=== PATIENT | male | born 1985 | race Caucasian/White ===

== ENCOUNTER 2018-02-08 22:58 | Emergency (ER) | payer OTHER ==
[~2018-02-08 22:58] MED LIST: EPIN0.3P15 IM; FAM20 PO; PRED20TA6 PO
--- NOTE | 2018-02-08 23:16 | ER Report ---
History and Physical Time Seen By MD: 23:13 Hx. of Stated Complaint: allergic reaction that started about an hour from new medication started yesterday, singular; patient is experiencing jittery feeling; sob; declines throat swelling; chest tightness HPI/ROS CHIEF COMPLAINT: Tremor, restlessness HISTORY OF PRESENT ILLNESS: 32-year-old male with a history of allergies read by an type caster who recently started him on Singulair. He took his 1st dose last night and began to have some adverse symptoms of restlessness and poor sleep. Tonight he took a 2nd dose. He has involuntary myoclonic twitching of his legs and arms. Patient looked up the side effect, and it is noted on the list of side effects for this medication. He's never had anything like this before. He denies substance or alcohol use. REVIEW OF SYSTEMS: Respiratory: No cough, no dyspnea. Cardiovascular: No chest pain, no palpitations. Gastrointestinal: No vomiting, no abdominal pain. Musculoskeletal: As above Allergies: Coded Allergies: Sulfa (Sulfonamide Antibiotics) (Verified Allergy, Severe, 09/01/16) shellfish derived (Verified Allergy, Severe, 08/31/16) Penicillins (Verified Allergy, Mild, 02/21/08) Uncoded Allergies: VALERIAN (Allergy, Unknown, 08/31/16) Home Meds Active Scripts Epinephrine (EPIPEN 2-RAINER) 0.3 Mg/0.3 Ml Pen.injctr, 0.3 MG IM DIRECTED PRN for ALLERGY SYMPTOMS, #1 PACK 0 Refills Prov:BEVERLY BALDWIN MD 09/01/16 Reported Medications Levocetirizine (XYZAL) 5 Mg Tab, 5 MG PO, TAB 02/09/18 Montelukast Sodium (SINGULAIR) 10 Mg Tablet, 1 TAB PO QDAY, TAB 02/09/18 Discontinued Reported Medications [None] No Conflict Check, 0 Refills 06/07/10 Discontinued Scripts Prednisone (PREDNISONE) 20 Mg Tablet, 40 MG PO QDAY, #4 TAB 0 Refills Prov:BEVERLY BALDWIN MD 09/01/16 Past Medical/Surgical History Allergic rhinitis Reviewed Nurses Notes: Yes Old Medical Records Reviewed: Yes Hx Substance Use Disorder: Yes (MARIJUANA OCC IN PAST) Hx Alcohol Use: Yes (RARE) Constitutional Vital Sign - Last 24 Hours 02/08/18 02/08/18 02/08/1802/08/18 23:04 23:06 23:28 23:35 Temp 98.7 Pulse 70 76 Resp 19 B/P (MAP) 137/86 (103) 137/86 121/78 (92) Pulse Ox 95 99 O2 Delivery Room Air 02/08/18 02/09/18 23:58 00:00 Pulse 90 B/P (MAP) 118/74 (89) Pulse Ox 93 Physical Exam Vital signs stable, afebrile, pulse ox normal General Appearance: The patient is alert, has no immediate need for airway protection and no current signs of toxicity. Involuntary myoclonic twitching of the legs and arms HEENT: Pupils equal and round no injection. TMs normal, oropharynx without redness or exudate Respiratory: Chest is non tender, lungs are clear to auscultation. Cardiac: regular rate and rhythm Gastrointestinal: Abdomen is soft and non tender, no masses, bowel sounds normal. Musculoskeletal: Neck: Neck is supple and non tender. Extremities have full range of motion and are non tender. Tremor, shaking Skin: No rashes or lesions. DIFFERENTIAL DIAGNOSIS: After history and physical exam differential diagnosis was considered for adverse medication reaction, tremor, agitation, restlessness, substance withdrawal, substance abuse. Medical Decision Making Data Points Result Diagram: 02/08/183 02/08/18 2333 Laboratory Hematology Test 02/08/18 23:33 02/09/18 00:03 Red Blood Count 5.74 M/uL (4.00-5.60) Mean Corpuscular Volume 86.9 fL (80.0-96.0) Mean Corpuscular Hemoglobin 30.0 pg (26.0-33.0) Mean Corpuscular Hemoglobin Concent 34.5 g/dL (32.0-36.0) Red Cell Distribution Width 13.2 % (11.5-14.5) Mean Platelet Volume 8.1 fL (7.2-11.1) Neutrophils (%) (Auto) 49.3 % (39.4-72.5) Lymphocytes (%) (Auto) 39.6 % (17.6-49.6) Monocytes (%) (Auto) 8.7 % (4.1-12.4) Eosinophils (%) (Auto) 1.8 % (0.4-6.7) Basophils (%) (Auto) 0.6 % (0.3-1.4) Nucleated RBC Relative Count (auto) 0.2 /100WBC Neutrophils # (Auto) 4.0 K/uL (2.0-7.4) Lymphocytes # (Auto) 3.2 K/uL (1.3-3.6) Monocytes # (Auto) 0.7 K/uL (0.3-1.0) Eosinophils # (Auto) 0.1 K/uL (0.0-0.5) Basophils # (Auto) 0.0 K/uL (0.0-0.1) Nucleated RBC Absolute Count (auto) 0.01 K/uL Sodium Level 139 mmol/L (137-145) Potassium Level 3.7 mmol/L (3.5-5.0) Chloride Level 101 mmol/L (98-107) Carbon Dioxide Level 27 mmol/L (22-30) Blood Urea Nitrogen 14 mg/dl (9-21) Creatinine 0.90 mg/dl (0.66-1.25) Glomerular Filtration Rate Calc > 60.0 Random Glucose 108 mg/dl (75-110) Calcium Level 9.5 mg/dl (8.4-10.2) Total Bilirubin 0.5 mg/dl (0.2-1.3) Aspartate Amino Transf (AST/SGOT) 28 U/L (0-35) Alanine Aminotransferase (ALT/SGPT) 36 U/L (0-56) Alkaline Phosphatase 79 U/L (0-126) Troponin I < 0.012 ng/ml Total Protein 7.2 g/dl (6.3-8.2) Albumin 4.4 g/dl (3.5-5.0) D-Dimer Quantitative (PE/DVT) < 0.27 ug/ml (0-0.50) Chemistry Test 02/08/18 23:33 02/09/18 00:03 White Blood Count 8.1 k/uL (4.5-11.0) Red Blood Count 5.74 M/uL (4.00-5.60) Hemoglobin 17.2 g/dL (14.0-18.0) Hematocrit 49.9 % (42.0-52.0) Mean Corpuscular Volume 86.9 fL (80.0-96.0) Mean Corpuscular Hemoglobin 30.0 pg (26.0-33.0) Mean Corpuscular Hemoglobin Concent 34.5 g/dL (32.0-36.0) Red Cell Distribution Width 13.2 % (11.5-14.5) Platelet Count 263 K/uL (150-450) Mean Platelet Volume 8.1 fL (7.2-11.1) Neutrophils (%) (Auto) 49.3 % (39.4-72.5) Lymphocytes (%) (Auto) 39.6 % (17.6-49.6) Monocytes (%) (Auto) 8.7 % (4.1-12.4) Eosinophils (%) (Auto) 1.8 % (0.4-6.7) Basophils (%) (Auto) 0.6 % (0.3-1.4) Nucleated RBC Relative Count (auto) 0.2 /100WBC Neutrophils # (Auto) 4.0 K/uL (2.0-7.4) Lymphocytes # (Auto) 3.2 K/uL (1.3-3.6) Monocytes # (Auto) 0.7 K/uL (0.3-1.0) Eosinophils # (Auto) 0.1 K/uL (0.0-0.5) Basophils # (Auto) 0.0 K/uL (0.0-0.1) Nucleated RBC Absolute Count (auto) 0.01 K/uL Glomerular Filtration Rate Calc > 60.0 Calcium Level 9.5 mg/dl (8.4-10.2) Total Bilirubin 0.5 mg/dl (0.2-1.3) Aspartate Amino Transf (AST/SGOT) 28 U/L (0-35) Alanine Aminotransferase (ALT/SGPT) 36 U/L (0-56) Alkaline Phosphatase 79 U/L (0-126) Troponin I < 0.012 ng/ml Total Protein 7.2 g/dl (6.3-8.2) Albumin 4.4 g/dl (3.5-5.0) D-Dimer Quantitative (PE/DVT) < 0.27 ug/ml (0-0.50) Coagulation Test 02/09/18 00:03 D-Dimer Quantitative (PE/DVT) < 0.27 ug/ml EKG/Imaging EKG Interpretation 12 lead EK Rhythm: normal sinus rhythm with sinus arrhythmia [place]: normal QRS: normal ST segments: normal, no evidence of ischemia or dysrhythmia ED Course/Re-evaluation ED Course Patient was admitted to an examination room. H&P was done. The differential diagnoses was considered. On clinical examination. Patient has stable vital signs. He has involuntary myoclonic twitching. It is listed as a side effect of Singulair. She's medicated with Ativan 1 mg IV and is much improved after observation of 60 minutes. He states discharged home with an additional 1 mg of Ativan to take orally should he have any continued twitching or worsening of his condition. He is advised to discontinue Singulair, contact the physician that prescribed it for other treatment options. Decision to Disposition Date: Feb 09, 2018 Decision to Disposition Time: 00:13 Depart Departure Latest Vital Signs Vital Signs Date Time Temp Pulse Resp B/P (MAP) Pulse Ox O2 Delivery O2 Flow Rate FiO2 02/09/18 00:00 118/74 (89) 02/08/18 23:58 90 93 02/08/18 23:06 98.7 19 Room Air Impression: Primary Impression: Restlessness and agitation Additional Impressions: Adverse drug reaction Allergic rhinitis Condition: Improved Disposition: HOME OR SELF-CARE Patient Instructions: Adverse Drug Reaction (ED) Additional Instructions: Stop taking Singulair list as an allergy in the future Contact your physician I prescribed the Singulair Problem Qualifiers Additional Impressions: Adverse drug reaction Encounter type: initial encounter Qualified Codes: T50.905A - Adverse effect of unspecified drugs, medicaments and biological substances, initial encounter Allergic rhinitis Allergic rhinitis trigger: unspecified Allergic rhinitis seasonality: unspecified Qualified Codes: J30.9 - Allergic rhinitis, unspecified CHICA COLLIER DO Feb 08, 2018 23:16
[2018-02-08] MEDS ORDERED: LORazepam 2 MG/ML VIAL IVP ONE (23:20)
[2018-02-08 23:42] LABS: PLATELET COUNT, AUTOMATED 263 K/uL (150-450)
[2018-02-09] VITALS: BP 118/74
[2018-02-09] MEDS ORDERED: LEVO5TAB28 PO (00:14)
[2018-02-09] MEDS ORDERED: MONT10TA PO (00:14)
[2018-02-09] MEDS ORDERED: LORazepam 1 MG TAB PO ONE (00:15)
--- NOTE | 2018-02-09 02:03 | EKG ---
FACILITY: [facility] - [place] PATIENT NAME: JIGAR CRUZ : [id number] MR: [id number] V: [id number] EXAM DATE: ORDERING PHYSICIAN: CHICA COLLIER TECHNOLOGIST: SHERIF Test Reason : CHEST TIGHTNESS Blood Pressure : / mmHG Vent. Rate : 072 BPM Atrial Rate : 072 BPM P-R Int : 162 ms QRS Dur : 092 ms QT Int : 374 ms P-R-T Axes : 050 054 049 degrees QTc Int : 409 ms Normal sinus rhythm with sinus arrhythmia Normal ECG No previous ECGs available Confirmed by KEMAR GARCÍA ([id number]) on 02/09/2018 6:16:22 AM Referred By: AMIRA Confirmed By:KEMAR GARCÍA
[2018-02-09] MEDS ORDERED: PRED20TA6 PO (17:29)
== END 2018-02-09 00:35 | disposition home or self-care (01) ==
LOC: ER 23:26
DX: T50.905A Adverse effect of unspecified drugs, medicaments and biological substances, initial encounter (principal); J30.9 Allergic rhinitis, unspecified; R45.1 Restlessness and agitation
CPT/HCPCS: 84484; 85025; 85379; 93005; 96374; 99283; J2060; 82040; 82247; 82310; 82374; 82435; 82565; 82947; 84075; 84132; 84155; 84295; 84450; 84460; 84520

== ENCOUNTER 2018-02-09 14:32 | Emergency (ER) | payer OTHER ==
[~2018-02-09 14:32] MED LIST changes: +LEVO5TAB28 PO; +MONT10TA PO
--- NOTE | 2018-02-09 14:45 | ER Report ---
History and Physical Time Seen By MD: 14:43 Hx. of Stated Complaint: Pt. feels like he is having an allergic reaction to Singulair. Prescribed on Friday 02/09. Seen last night in ED for the same issue. Was given Lorazepam which helped with muscle spasms. But now, he feels like his tongue is sweating and difficulty swallowing. Left side of face feels numb. Well-appearing in triage. HPI/ROS CHIEF COMPLAINT: Allergic reaction HISTORY OF PRESENT ILLNESS: This is a 32-year-old male who presents to the emergency department for concerns of an allergic reaction. Patient was seen and evaluated in the emergency department last night for concerns of an allergic reaction to his Singulair that he started 2 days prior. Patient has a history of anaphylaxis with shellfish. Patient does have seasonal allergies, and has seen an director of cardiac rehabilitation in [place], was prescribed Singulair. Patient states that after the evaluation and treatment last night he was feeling better however today he started to have some more the muscle twitching states then he began to have some "tongue swelling and flushing in the face". Patient did take an Ativan which did seem to help, he did not take Benadryl. Patient returns to the ER alert and oriented, no distress. No fevers or chills. No chest pain. Dyspnea. REVIEW OF SYSTEMS: Constitutional: No fever, no chills. Eyes: No discharge. ENT: No sore throat. Cardiovascular: No chest pain, no palpitations. Respiratory: As above. Gastrointestinal: No abdominal pain, no vomiting. Genitourinary: No hematuria. Musculoskeletal: As above. Skin: No rashes. Neurological: No headache. Allergies: Coded Allergies: Sulfa (Sulfonamide Antibiotics) (Verified Allergy, Severe, 02/09/18) shellfish derived (Verified Allergy, Severe, 02/09/18) Penicillins (Verified Allergy, Mild, 02/09/18) montelukast (Verified Allergy, Mild, FACIAL [place], 02/09/18) Uncoded Allergies: VALERIAN (Allergy, Unknown, 08/31/16) Home Meds Active Scripts Prednisone (PREDNISONE) 20 Mg Tablet, 20 MG PO BID, #6 TAB Prov:VIVIENNE LUNSFORD LITIGATION LEGAL ASSISTANT-BC 02/09/18 Epinephrine (EPIPEN 2-RAINER) 0.3 Mg/0.3 Ml Pen.injctr, 0.3 MG IM DIRECTED PRN for ALLERGY SYMPTOMS, #1 PACK 0 Refills Prov:BEVERLY BALDWIN MD 09/01/16 Discontinued Reported Medications Levocetirizine (XYZAL) 5 Mg Tab, 5 MG PO, TAB 02/09/18 Montelukast Sodium (SINGULAIR) 10 Mg Tablet, 1 TAB PO QDAY, TAB 02/09/18 [None] No Conflict Check, 0 Refills 06/07/10 Discontinued Scripts Prednisone (PREDNISONE) 20 Mg Tablet, 40 MG PO QDAY, #4 TAB 0 Refills Prov:BEVERLY BALDWIN MD 09/01/16 Past Medical/Surgical History Patient's has a past medical and surgical history of wearing glasses, " bradycardia" "a lot of allergies", uses marijuana, cigarettes. Reviewed Nurses Notes: Yes Hx Substance Use Disorder: Yes (MARIJUANA OCC IN PAST) Hx Alcohol Use: Yes (RARE) Constitutional Vital Sign - Last 24 Hours 02/09/18 14:38 Temp 98.2 Physical Exam General Appearance: The patient is alert, has no immediate need for airway protection and no signs of toxicity, appears relaxed and comfortable. Eyes: Pupils equal and round no pallor or injection. ENT, Mouth: Mucous membranes are moist. No edema. Uvula midline. Mild erythema to the posterior oropharynx. Respiratory: There are no retractions, lungs are clear to auscultation. Cardiovascular: Regular rate and rhythm. Gastrointestinal: Abdomen is soft and non tender, no masses, bowel sounds normal. Neurological: Alert and oriented 4. Moving all extremities. Following all commands. No focal neuro deficits. Skin: Warm and dry, no rashes. Musculoskeletal: Neck is supple non tender. Extremities are nontender, nonswollen and have full range of motion. DIFFERENTIAL DIAGNOSIS: After history and physical exam differential diagnosis was considered for anxiety, anaphylaxis, allergic reaction and medication reaction. Medical Decision Making ED Course/Re-evaluation Clinical Indication for ER IV: Hydration, IV Access ED Course The patient was admitted to room. A history because were obtained. Differential diagnoses were considered. An IV was started. A 1 L normal saline bolus was given. 125 mg IV Solu-Medrol was given, 25 mg IV Benadryl, 20 mg IV famotidine. Patient responded well to these medications, states he is feeling well enough to go home at this time. Did encourage patient to take Benadryl as needed for recurrent symptoms. I also sent a prescription for prednisone over the patient's pharmacy. Did instruct the patient follow up with his primary care provider and his director of cardiac rehabilitation in [place] for reevaluation. Also instructed him not to take the Singulair. Patient was in agreement with the care and discharged home. Decision to Disposition Date: Feb 09, 2018 Decision to Disposition Time: 17:26 Depart Departure Latest Vital Signs Vital Signs Date Time Temp Pulse Resp B/P (MAP) Pulse Ox O2 Delivery O2 Flow Rate FiO2 02/09/18 14:38 98.2 Impression: Primary Impression: Allergic reaction Condition: Improved Disposition: HOME OR SELF-CARE New Scripts Prednisone (PREDNISONE) 20 Mg Tablet 20 MG PO BID, #6 TAB Prov: VIVIENNE LUNSFORD 02/09/18 Patient Instructions: General Allergic Reaction (ED) Additional Instructions: Be sure to keep your EpiPen with you at all times. Stop taking the Singulair. Follow-up with your director of cardiac rehabilitation for future needs. Take the prednisone as prescribed. Intake Benadryl 25 mg every 4-6 hours as needed for recurrent symptoms. Ring plenty of water. Get plenty of rest. Return to the emergency department for any other concerns or worsening symptoms. Problem Qualifiers Primary Impression: Allergic reaction Encounter type: initial encounter Qualified Codes: T78.40XA - Allergy, unspecified, initial encounter VIVIENNE LUNSFORD-BC Feb 09, 2018 14:45
[2018-02-09] MEDS ORDERED: FAMOTIDINE(*) 20MG/50ML PREMIX 50 ML IVPB ONE (16:00)
[2018-02-09] MEDS ORDERED: methylPREDNIS SUCC 125 MG/2ML IVP ONE (16:00)
[2018-02-09] MEDS ORDERED: diphenhydrAMINE 50 MG/ML VIAL IVP ONE (16:00)
[2018-02-09] MEDS ORDERED: NS(*) 0.9% 1000 ML BAG 1,000 ML IV ONE (16:15)
[2018-02-09] MEDS ORDERED: PRED20TA6 PO (17:29)
== END 2018-02-09 17:55 | disposition home or self-care (01) ==
LOC: ER 14:39
DX: T48.6X5A Adverse effect of antiasthmatics, initial encounter (principal)
CPT/HCPCS: 96365; 96375; 99284; J1200; J2930; J3490; J7030

== ENCOUNTER 2018-02-12 14:40 | Emergency (ER) | payer OTHER ==
[2018-02-12] MEDS ORDERED: DIPH-740 PO (14:51)
[2018-02-12] MEDS ORDERED: LEVO5TAB28 PO (14:51)
[2018-02-12] MEDS ORDERED: ALBU8.5H IH (14:54)
--- NOTE | 2018-02-12 14:58 | ER Report ---
History and Physical Time Seen By MD: 14:57 Hx. of Stated Complaint: pt seen recently for allergic reaction to singulair, was put on prednisone. On his last dose of prednisone today and started having reaction, now he thinks to the prednison, itching on l side of face and airway, upper abd tight, with abd/chest cramping Also having environmental allergies HPI/ROS CHIEF COMPLAINT: allergic reaction HISTORY OF PRESENT ILLNESS: PT states he has had increase in his allergy symptoms since he moved into his new place. Pt feels it may be mold related. Feels better when he is out of his house. PT went to see sand blaster and was started on singular and OTC allergy med. PT states that he had an allergic reaction to the singular. [place] as if his throat was closing, muscle cramping, sob. Pt went to ed and was started on benadryl and prednisone and told to stop the singular. Pt states he was doing okay but ever since the furnace in his ho use turned on his allergies are getting bad again in the house. PT today feels gittery, muscles tremor and anxious. PT thinks it is due to the prednisone. has one more dose of prednisone and is not sure if he should take it. no fevers. no chills. + runny nose REVIEW OF SYSTEMS: Constitutional: No fever, no chills. Eyes: No discharge. ENT: No sore throat. + runny nose Cardiovascular: No chest pain, no palpitations. Respiratory: No cough, no shortness of breath. Gastrointestinal: No abdominal pain, no vomiting. Genitourinary: No hematuria. Musculoskeletal: No back pain. Skin: No rashes. Neurological: No headache Psych: anxious Allergies: Coded Allergies: Sulfa (Sulfonamide Antibiotics) (Verified Allergy, Severe, 02/09/18) shellfish derived (Verified Allergy, Severe, 02/09/18) Penicillins (Verified Allergy, Mild, 02/09/18) montelukast (Verified Allergy, Mild, FACIAL [place], 02/09/18) Uncoded Allergies: VALERIAN (Allergy, Unknown, 08/31/16) Home Meds Active Scripts Prednisone (PREDNISONE) 20 Mg Tablet, 20 MG PO BID, #6 TAB Prov:VIVIENNE LUNSFORD TELEGRAPH LINEMAN-BC 02/09/18 Epinephrine (EPIPEN 2-RAINER) 0.3 Mg/0.3 Ml Pen.injctr, 0.3 MG IM DIRECTED PRN f or ALLERGY SYMPTOMS, #1 PACK 0 Refills Prov:BEVERLY BALDWIN MD 09/01/16 Reported Medications Albuterol Sulfate 90 Mcg/Act (PROAIR HFA 90 MCG/ACT) 8.5 Gm Hfa.aer.ad, 1-2 PUFF IH 3-4XD, INHALER 02/12/18 Levocetirizine (XYZAL) 5 Mg Tab, 5 MG PO, TAB 02/12/18 Diphenhydramine Hcl (BENADRYL) 25 Mg Capsule, 25 MG PO Q6-8H, CAPSULE 02/12/18 Discontinued Reported Medications Levocetirizine (XYZAL) 5 Mg Tab, 5 MG PO, TAB 02/09/18 Montelukast Sodium (SINGULAIR) 10 Mg Tablet, 1 TAB PO QDAY, TAB 02/09/18 [None] No Conflict Check, 0 Refills 06/07/10 Discontinued Scripts Prednisone (PREDNISONE) 20 Mg Tablet, 40 MG PO QDAY, #4 TAB 0 Refills Prov:BEVERLY BALDWIN MD 09/01/16 Past Medical/Surgical History PMhx: depression and anxiety Reviewed Nurses Notes: Yes Hx Smoking: No Hx Substance Use Disorder: Yes (MARIJUANA OCC IN PAST) Hx Alcohol Use: Yes (RARE) Constitutional Vital Sign - Last 24 Hours 02/12/18 02/12/18 14:45 15:25 Temp 98.1 Pulse 88 Resp 20 B/P (MAP) 129/95 113/83 (93) Pulse Ox 99 O2 Delivery Room Air Physical Exam General Appearance: The patient is alert, has no immediate need for airway protection and no signs of toxicity. Eyes: Pupils equal and round no pallor or injection, EOMI ENT: no pharyngeal erythema or exudates, Mucous membranes are moist Respiratory: There are no retractions, lungs are clear to auscultation. Cardiovascular: Regular rate and rhythm. pulses are equal and symmetrical Gastrointestinal: Abdomen is soft and non tender, no masses, bowel sounds normal, no guarding, no rigidity or rebound Neurological: Cranial nerves II-XII grossly intact, no sensory or motor loss Skin: Warm and dry, no rashes. Musculoskeletal: Neck is supple non tender, no vertebral tenderness Extremities are nontender, non swollen and have full range of motion. DIFFERENTIAL DIAGNOSIS: After history and physical exam differential diagnosis was considered for adverse reaction to prednisone or benadryl, mold/envioromental allergy, anxiety Medical Decision Making ED Course/Re-evaluation ED Course Had long talk with pt. Pt has been using benadryl 25mg every 4 hours for last week. Concerned that with the prednisone and benadryl he could be having par adoical reaction causing tankage supervisor stimulation and feeling anxious. Pt pulse ox 97%, no rash, no throat swelling. will hold the last dose of prednsione. Will change the benadryl to every 6 hours as needed not every 4. will add pepcid twice a day for allergies. Discussed talking with keesha lira about testing for mold and also change of filters. Decision to Disposition Date: Feb 12, 2018 Decision to Disposition Time: 15:12 Depart Departure Latest Vital Signs Vital Signs Date Time Temp Pulse Resp B/P (MAP) Pulse Ox O2 Delivery O2 Flow Rate FiO2 02/12/18 15:25 113/83 (93) 02/12/18 14:45 98.1 88 20 99 Room Air Impression: Primary Impression: Adverse drug reaction Condition: Improved Disposition: HOME OR SELF-CARE Patient Instructions: Adverse Drug Reaction (ED) Additional Instructions: Stop your prednisone. Benadryl 25 mg every 6 hours as needed for allergy symptoms. pepcid 20mg twice a day to help with allergies. Continue your flonase nasal spray. albuterol 2 puffs every 4 hours as needed for shortness of breath. Follow up with your doctor/sand blaster Return as needed. Problem Qualifiers Primary Impression: Adverse drug reaction Encounter type: initial encounter Qualified Codes: T50.905A - Adverse effect of unspecified drugs, medicaments and biological substances, initial encounter KRISTA CHURCH DO Feb 12, 2018 14:58
[2018-02-12 15:25] VITALS: BP 113/83
== END 2018-02-12 15:27 | disposition home or self-care (01) ==
LOC: ER 15:08
DX: T50.905A Adverse effect of unspecified drugs, medicaments and biological substances, initial encounter (principal)
CPT/HCPCS: 99281

== ENCOUNTER 2018-06-17 21:26 | Emergency (ER) | payer OTHER ==
[~2018-06-17 21:26] MED LIST changes: +ALBU8.5H IH; +DIPH-740 PO
--- NOTE | 2018-06-17 21:36 | ER Report ---
History and Physical Time Seen By MD: 21:36 HPI/ROS CHIEF COMPLAINT: Possible allergic reaction HISTORY OF PRESENT ILLNESS: This is a 33-year-old male. He was using some antihistamine nasal spray today. Starting to feel like his throat was closing off after using this. Has a history of allergies and asthma with ongoing workup. He did take some Benadryl and some Pepcid at home which seemed to help a little bit but was still feeling the symptoms so came in. Has had allergic reactions like this in the past. Allergies: Coded Allergies: Sulfa (Sulfonamide Antibiotics) (Verified Allergy, Severe, 02/09/18) azelastine (Verified Allergy, Severe, THROAT SWELLING, 06/17/18) shellfish derived (Verified Allergy, Severe, 02/09/18) valacyclovir (Verified Allergy, Intermediate, SKIN RASH/THROAT SWELLING, 06/17/18) Penicillins (Verified Allergy, Mild, 02/09/18) montelukast (Verified Allergy, Mild, FACIAL [place]INGLING, 02/09/18) Uncoded Allergies: VALERIAN (Allergy, Unknown, 08/31/16) Home Meds Active Scripts Prednisone (PREDNISONE) 20 Mg Tablet, 60 MG PO QDAY, #12 TAB 0 Refills Prov:BEVERLY BALDWIN MD 06/17/18 Prednisone (PREDNISONE) 20 Mg Tablet, 20 MG PO BID, #6 TAB Prov:[facility]EN[facility]- 02/09/18 Epinephrine (EPIPEN 2-RAINER) 0.3 Mg/0.3 Ml Pen.injctr, 0.3 MG IM DIRECTED PRN for ALLERGY SYMPTOMS, #1 PACK 0 Refills Prov:BEVERLY BALDWIN MD 09/01/16 Reported Medications Albuterol Sulfate 90 Mcg/Act (PROAIR HFA 90 MCG/ACT) 8.5 Gm Hfa.aer.ad, 1-2 PUFF IH 3-4XD, INHALER 02/12/18 Levocetirizine (XYZAL) 5 Mg Tab, 5 MG PO, TAB 02/12/18 Diphenhydramine Hcl (BENADRYL) 25 Mg Capsule, 25 MG PO Q6-8H, CAPSULE 02/12/18 Reviewed Nurses Notes: Yes Hx Smoking: No Hx Substance Use Disorder: Yes (MARIJUANA OCC IN PAST) Hx Alcohol Use: Yes (RARE) Constitutional Vital Sign - Last 24 Hours 06/17/18 06/17/18 06/17/18 06/17/18 21:37 22:11 22:20 22:26 Temp 98.3 Pulse 81 68 69 Resp 24 B/P (MAP) 133/99 125/89 (101) Pulse Ox 95 95 93 O2 Delivery Room Air 06/17/18 06/17/18 22:30 22:41 Pulse 77 B/P (MAP) 126/82 (97) Pulse Ox 93 Intake and Output 06/17/18 06/17/18 06/18/18 15:00 23:00 07:00 Intake Total 1000 ml Balance 1000 ml Physical Exam General Appearance: Alert, no distress. Eyes: Pupils equal and round no injection. ENT: Normal oral mucosa. Moist mucous membranes. Normal posterior oropharynx. Nasal mucosa is a little erythematous. No signs of swelling of the tongue, lips, or oropharynx. Neck: Neck is supple and non tender. Respiratory: Chest is non tender, lungs are clear to auscultation. Cardiac: regular rate and rhythm Musculoskeletal: Extremities have full range of motion. Skin: No rashes or lesions. DIFFERENTIAL DIAGNOSIS: After history and physical exam differential diagnosis was considered for patient with possible allergic reaction to nasal spray Medical Decision Making ED Course/Re-evaluation Clinical Indication for ER IV: Hydration, IV Access ED Course IV was started. Patient are had Pepcid on board. Also with Benadryl 25 mg on board so gave another 25 mg IV. Also Solu-Medrol 125 mg IV. A liter of normal saline. On reevaluation the patient is much better. No signs of swelling arrest story compromise. Continue on prednisone for a few days as well as [id number] Benadryl and Pepcid. He will follow-up with allergy for the planned evaluation Decision to Disposition Date: Jun 17, 2018 Decision to Disposition Time: 22:34 Depart Departure Latest Vital Signs Vital Signs Date Time Temp Pulse Resp B/P (MAP) Pulse Ox O2 Delivery O2 Flow Rate FiO2 06/17/18 22:41 77 93 06/17/18 22:30 126/82 (97) 06/17/18 21:37 98.3 24 Room Air Impression: Primary Impression: Allergic reaction Condition: Improved Disposition: HOME OR SELF-CARE New Scripts Prednisone (PREDNISONE) 20 Mg Tablet 60 MG PO QDAY, #12 TAB 0 Refills Prov: BEVERLY BALDWIN MD 06/17/18 Patient Instructions: General Allergic Reaction (ED) Additional Instructions: Prednisone 20mg, 3 tablets (60mg) once a day for 2 days, then can stop. If symptoms rebound and worsen after stopping this medicine, then you can repeat for 2 more days. Take Benadryl 25mg, one every 6 hours as needed for allergic symptoms. Pepcid 20mg twice a day for the next few days. Problem Qualifiers Primary Impression: Allergic reaction Encounter type: initial encounter Qualified Codes: T78.40XA - Allergy, unspecified, initial encounter BEVERLY BALDWIN MD Jun 17, 2018 21:36
[2018-06-17] MEDS ORDERED: NS(*) 0.9% 1000 ML BAG 1,000 ML IV ONE (21:40)
[2018-06-17] MEDS ORDERED: diphenhydrAMINE 50 MG/ML VIAL IVP ONE (21:40)
[2018-06-17] MEDS ORDERED: methylPREDNIS SUCC 125 MG/2ML IVP ONE (21:40)
[2018-06-17 22:30] VITALS: BP 126/82
[2018-06-17] MEDS ORDERED: PRED20TA6 PO (22:35)
[2018-06-17] MEDS ORDERED: predniSONE 20 MG TAB PO ONE (22:50)
== END 2018-06-17 22:55 | disposition home or self-care (01) ==
LOC: ER 21:52
DX: T78.40XA Allergy, unspecified, initial encounter (principal)
CPT/HCPCS: 96374; 96375; 99284; J1200; J2930; J7030; J7512

== ENCOUNTER → 2018-09-25 | Outpatient (REF) | payer OTHER | LOC: ZZSENDIN 16:58 | PROVIDERS: ATTEND Family Medicine | DX: R36.0 Urethral discharge without blood (principal); R30.0 Dysuria | CPT/HCPCS: 81001; 87491; 87591 ==